=== PATIENT | male | born 1985 | race Caucasian/White ===

== ENCOUNTER 2018-04-06 01:57 | Emergency (ER) | payer OTHER ==
[2018-04-06 02:59] VITALS: BMI 21.1
--- NOTE | 2018-04-06 03:00 | PDOC ---
Attending Attestation - Resident Resident Name: Maricruz Nguyen - ED Attending Attestation I have performed the following: I have examined & evaluated the patient, The case was reviewed & discussed with the resident, I agree w/resident's findings & plan
[2018-04-06] MEDS ORDERED: FAMOTIDINE 20 MG/50 ML IVPB 20 MG/50 ML MG IVPB ONE ×2 (03:25→03:38)
[2018-04-06] MEDS ORDERED: MAG HYDROX/AL HYDROX/SIMETH 30 ML UNIT-DOSE CUP PO ONE (03:25)
[2018-04-06] MEDS ORDERED: SODIUM CHLORIDE 500 ML IV STA (03:25)
[2018-04-06] MEDS ORDERED: ONDANSETRON *ODT* 4 MG TABLET SL ONE (03:27)
--- NOTE | 2018-04-06 03:29 | PDOC ---
History of Present Illness - General Chief Complaint: Chronic pain Stated Complaint: ABDOMINAL PAIN Time Seen by Provider: 04/06/18 02:58 History Source: Patient Exam Limitations: Clinical Condition - History of Present Illness Initial Comments: 04/06/18 05:04 Patient with h/o gastritis and GERD on nexium present with complains of severe epigastric pains radiating to the mid-back for a week now with nausea. Patient report he has been having this abdominal pains intermittently for over a year now and seen multiple GI dosctors with no findings. Patient report he has visited multiple EDs for symptoms and imaging done comes back negative and treated for the pain and discharge. Patient report pepcid and mylanta does not help with pain and needed a good pain medication due to severe epigastric pains. Patient report constipation for same period. Patient report he has apt with GI in 2 days. Patient has been seen in this ED multiple times in over 2 year for same complains with no findings Timing/Duration: 1 week Past History - Past Medical History Allergies/Adverse Reactions: Allergies Allergy/AdvReac Type Severity Reaction Status Date / Time No Known Allergies Allergy Verified 04/06/18 02:59 Home Medications: Ambulatory Orders Esomeprazole Magnesium [Nexium 24Hr] 40 mg PO DAILY 04/06/18 Ondansetron HCl [Zofran] 8 mg PO DAILY PRN 04/06/18 Pantoprazole Sodium [Protonix] 40 mg PO DAILY #20 tablet. 04/06/18 COPD: No GI Disorders: Yes (ULCERS) - Surgical History Abdominal Surgery: No - Immunization History Immunization Up to Date: No - Suicide/Smoking/Psychosocial Hx Smoking Status: No Smoking History: Never smoked Have you smoked in the past 12 months: No Number of Cigarettes Smoked Daily: 0 Information on smoking cessation initiated: No Hx Alcohol Use: Yes Drug/Substance Use Hx: No Substance Use Type: None Hx Substance Use Treatment: No Review of Systems - Review of Systems Able to Perform ROS?: Yes Is the patient limited Tunisian proficient: No Constitutional: No: Chills, Fever HEENTM: No: Symptoms Reported, See HPI, Eye Pain, Blurred Vision, Tearing, Recent change in vision, Double Vision, Cataracts, Ear Pain, Ocular Prothesis, Ear Discharge, Nose Pain, Nose Congestion, Tinnitus, Nose Bleeding, Hearing Loss , Throat Pain, Throat Swelling, Mouth Pain, Dental Problems, Difficulty Swallowing, Mouth Swelling, Other Respiratory: No: Symptoms reported, See HPI, Cough, Orthopnea, Shortness of Breath, SOB with Exertion, SOB at Rest, Stridor, Wheezing, Productive cough, Hemoptysis, Other Cardiac (ROS): No: Symptoms Reported, See HPI, Chest Pain, Edema, Irregular Heart Rate, Lightheadedness, Palpitations, Syncope, Chest Tightness, Other ABD/GI: Yes: See HPI, Constipated, Nausea, Vomiting, Abdominal cramping ( epigastric). No: Diarrhea : No: Symptoms Reported, Frequency, Hematuria, Pain, Urgency, Testicular Mass , Testicular Swelling, Testicular Pain Musculoskeletal: No: Muscle Pain All Other Systems: Reviewed and Negative *Physical Exam - Vital Signs Last Vital Signs Temp Pulse Resp BP Pulse Ox 98.1 F 119 H 20 162/100 97 04/06/18 01:57 04/06/18 01:57 04/06/18 01:57 04/06/18 01:57 04/06/18 01:57 - Physical Exam General Appearance: Yes: Nourished, Appropriately Dressed, Mild Distress HEENT: positive: Normal ENT Inspection Neck: positive: Supple Respiratory/Chest: positive: Lungs Clear. negative: Respiratory Distress, Accessory Muscle Use Cardiovascular: positive: Regular Rhythm, Regular Rate Gastrointestinal/Abdominal: positive: Normal Bowel Sounds, Tender, Flat, Soft. negative: Organomegaly, Pulsatile Mass, Guarding, Rebound Musculoskeletal: positive: Normal Inspection. negative: CVA Tenderness Extremity: positive: Normal Capillary Refill, Normal Inspection, Normal Range of Motion Integumentary: positive: Normal Color, Dry, Warm Neurologic: positive: Fully Oriented, Alert. negative: Normal Mood/Affect Moderate Sedation - Procedure Monitoring Vital Signs: Procedure Monitoring Vital Signs Temperature 98.1 F 04/06/18 01:57 Pulse Rate 119 H 04/06/18 01:57 Respiratory Rate 20 04/06/18 01:57 Blood Pressure 162/100 04/06/18 01:57 O2 Sat by Pulse Oximetry (%) 97 04/06/18 01:57 ED Treatment Course - LABORATORY CBC & Chemistry Diagram: 04/06/18 03:30 04/06/18 03:30 Medical Decision Making - Medical Decision Making 04/06/18 05:10 Patient with h/o gastritis and GERD on nexium present with complains of severe epigastric pains radiating to the mid-back for a week now with nausea. Patient report he has been having this abdominal pains intermittently for over a year now and seen multiple GI dosctors with no findings. Patient report he has visited multiple EDs for symptoms and imaging done comes back negative and treated for the pain and discharge. Patient report pepcid and mylanta does not help with pain and needed a good pain medication due to severe epigastric pains no abdominal tenderness illicited on exam despite patient complaining of severe abdominal pains. CBC, CMP labs with no acute abnormality. Patient given morphine 2 mg IV and still requesting more pains meds . Patient laying in bed on his phone with any apperent discomfort but report severe pain when visited at bedside. CT with contrast of ABD/Pelvis ordered. dispo based on imaging results 04/06/18 06:37 cbc shows no elevated wbc. chemistry and cardiac profile normal. EKG shows NSR. abd/pelvic CT unremarkable. Patient requesting more pain meds and offered tylenol but declined and wants to be discharged. Patient stable for discharge to f/u with his GI apt tomorrow. *DC/Admit/Observation/Transfer Diagnosis at time of Disposition: GERD (gastroesophageal reflux disease) Qualifiers: Esophagitis presence: without esophagitis Qualified Code(s): K21.9 - Gastro- esophageal reflux disease without esophagitis Gastritis Qualifiers: Gastritis type: unspecified gastritis Chronicity: chronic Gastritis bleeding: without bleeding Qualified Code(s): K29.50 - Unspecified chronic gastritis without bleeding - Discharge Dispostion Disposition: HOME Condition at time of disposition: Stable Decision to Admit order: No - Prescriptions Prescriptions: Pantoprazole Sodium [Protonix] 40 mg PO DAILY #20 tablet.dr - Referrals Referrals: Win Mcmillan MD [Staff Physician] - - Patient Instructions Printed Discharge Instructions: Gastritis, [place] Diet Additional Instructions: Your labs and CAT scant was negative. Take prescribed medication daily. Follow- up with your GI as scheduled in tomorrow - Post Discharge Activity
[2018-04-06] MEDS ORDERED: morphine CARPU-JECT 2 MG/1 ML DISP.SYRIN IVPUSH ONE (03:33)
[2018-04-06] MEDS ORDERED: MORPHINE SULFATE 2 MG/ML VIAL ONE (03:37)
[2018-04-06] MEDS ORDERED: MAG HYDROX/AL HYDROX/SIMETH 30 ML UNIT-DOSE CUP ONE (03:37)
[2018-04-06] MEDS ORDERED: ONDANSETRON 4 MG/2 ML VIAL ONE (03:38)
[2018-04-06 03:48] LABS: BASO % 0.5 % (0-2.0); EOS % 0.5 % (0-4.5); HEMATOCRIT 46.1 % (35.4-49); LYMPH % 19.5 % (8-40); MEAN CELL VOLUME 86.6 fl (80-96); MEAN PLT VOLUME 6.9 fl (7.5-11.1); MONO % 15.2 % (3.8-10.2); NEUT % 64.3 % (42.8-82.8); PLATELET COUNT 288 K/MM3 (134-434); RBC 5.32 M/mm3 (4.00-5.60); WHITE BLOOD COUNT 6.8 K/mm3 (4.0-10.0)
[2018-04-06] MEDS ORDERED: ONDANSETRON 4 MG/2 ML VIAL IVPUSH ONE (03:52)
[2018-04-06 04:17] LABS: ALK PHOS 52 U/L (45-117); ANION GAP 10 MMOL/L (8-16); BILIRUBIN,TOTAL 3.1 mg/dL (0.2-1); BLOOD UREA NITROGEN 12 mg/dL (7-18); CALCIUM 9.9 mg/dL (8.5-10.1); CHLORIDE 94 mmol/L (98-107); CO2 30 mmol/L (21-32); CREATININE 0.9 mg/dL (0.55-1.3); GLUCOSE,RANDOM 101 mg/dL (74-106); LIPASE 169 U/L (73-393); POTASSIUM 3.5 mmol/L (3.5-5.1); SGOT/AST 21 U/L (15-37); SGPT/ALT 26 U/L (13-61); SODIUM 134 mmol/L (136-145); TOT PROT 8.3 g/dl (6.4-8.2)
[2018-04-06 06:20] VITALS: BP 149/98; PULSE 100; TEMP 98.2
--- NOTE | 2018-04-06 06:27 | PDOC ---
*Physical Exam - Vital Signs Last Vital Signs Temp Pulse Resp BP Pulse Ox 98.2 F 100 H 19 149/98 98 04/06/18 06:18 04/06/18 06:18 04/06/18 06:18 04/06/18 06:18 04/06/18 06:18 ED Treatment Course - LABORATORY CBC & Chemistry Diagram: 04/06/18 03:30 04/06/18 03:30 - ADDITIONAL ORDERS Additional order review: Laboratory Results 04/06/18 03:30 Sodium 134 L Potassium 3.5 Chloride 94 L Carbon Dioxide 30 Anion Gap 10 BUN 12 Creatinine 0.9 Creat Clearance w eGFR > 60 Random Glucose 101 Calcium 9.9 Total Bilirubin 3.1 H AST 21 ALT 26 Alkaline Phosphatase 52 Creatine Kinase 367 H Creatine Kinase Index 0.2 CK-MB (CK-2) < 1.0 Troponin I < 0.02 Total Protein 8.3 H Albumin 5.0 Lipase 169 04/06/18 03:30 RBC 5.32 MCV 86.6 MCHC 37.0 H RDW 13.0 MPV 6.9 L Neutrophils % 64.3 Lymphocytes % 19.5 D Monocytes % 15.2 H Eosinophils % 0.5 D Basophils % 0.5 - RADIOLOGY Radiology Studies Ordered: Category Date Time Status ABDOMEN & PELVIS CT WITH CONTR [CT] Stat CT Scan 04/06/18 04:59 Taken - Medications Given in the ED: ED Medications Discontinued Medications Generic Name Dose Route Start Last Admin Trade Name Freq PRN Reason Stop Dose Admin Al Hydroxide/Mg Hydroxide 30 ml 04/06/18 03:25 04/06/18 04:04 Mylanta Oral Suspension - PO 04/06/18 03:26 30 ml ONCE ONE Administration Famotidine/Sodium Chloride 20 mg in 50 mls @ 100 mls/hr 04/06/18 03:25 03:51 Pepcid 20 Mg Premixed Ivpb - IVPB 04/06/18 03:54 100 mls/hr ONCE ONE Administration Sodium Chloride 500 mls @ 500 mls/hr 04/06/18 03:25 04/06/18 03:50 Normal Saline - IV 04/06/18 04:24 500 mls/hr ASDIR STA Administration Morphine Sulfate 2 mg 04/06/18 03:33 04/06/18 03:51 Morphine Injection - IVPUSH 04/06/18 03:34 2 mg ONCE ONE Administration Ondansetron HCl 4 mg 04/06/18 03:27 04/06/18 04:04 Zofran Odt - SL 04/06/18 03:28 Not Given ONCE ONE Ondansetron HCl 4 mg 04/06/18 03:52 04/06/18 04:04 Zofran Injection IVPUSH 04/06/18 03:53 4 mg ONCE ONE Administration Medical Decision Making - Medical Decision Making 04/06/18 06:20 I have discussed and reviewed the case with the [facility] and agree with the assessment and plan. *DC/Admit/Observation/Transfer - Discharge Dispostion Condition at time of disposition: Fair - Referrals - Patient Instructions - Post Discharge Activity
--- NOTE | 2018-04-06 14:14 | EKG ---
Test Reason : Blood Pressure : / mmHG Vent. Rate : 079 BPM Atrial Rate : 079 BPM P-R Int : 164 ms QRS Dur : 088 ms QT Int : 386 ms P-R-T Axes : 086 079 059 degrees QTc Int : 442 ms NORMAL SINUS RHYTHM NORMAL ECG WHEN COMPARED WITH ECG OF 06-OCT-2017 13:42, NO SIGNIFICANT CHANGE WAS FOUND Confirmed by CHRIS AYERS MD ([id number]) on 04/06/2018 2:13:49 PM Referred By: Confirmed By:CHRIS AYERS MD
== END 2018-04-06 06:40 | disposition home or self-care (01) ==
LOC: JER 01:57
PROC: 3E033GC Introduction of Other Therapeutic Substance into Peripheral Vein, Percutaneous Approach (ICD-10-PCS; principal; 2018-04-06)
PROC: 3E033NZ Introduction of Analgesics, Hypnotics, Sedatives into Peripheral Vein, Percutaneous Approach (ICD-10-PCS; 2018-04-06)
PROC: 3E0337Z Introduction of Electrolytic and Water Balance Substance into Peripheral Vein, Percutaneous Approach (ICD-10-PCS; 2018-04-06)
DX: K29.50 Unspecified chronic gastritis without bleeding (principal); K21.9 Gastro-esophageal reflux disease without esophagitis
CPT/HCPCS: 36415; 74177-TC; 80053; 82550; 82553; 83690; 84484; 85025; 93005; 93010; 99285-25

== ENCOUNTER 2019-04-01 01:59 | Emergency (ER) | payer OTHER ==
[2019-04-01] MEDS ORDERED: SODIUM CHLORIDE 1,000 ML IV STA (02:28)
[2019-04-01] MEDS ORDERED: MAG HYDROX/AL HYDROX/SIMETH 30 ML UNIT-DOSE CUP PO ONE (02:28)
[2019-04-01] MEDS ORDERED: FAMOTIDINE 20 MG/50 ML IVPB 20 MG/50 ML MG IVPB ONE ×2 (02:28→03:11)
--- NOTE | 2019-04-01 02:31 | PDOC ---
History of Present Illness - General Chief Complaint: Pain, Acute Stated Complaint: ABDOMINAL PAIN Time Seen by Provider: 04/01/19 02:24 - History of Present Illness Initial Comments: 04/01/19 02:26 33 yo M with h/o GERD, PUD, multiple ED encounters for abdominal pain who p/w periumbilical abdominal pain. Patient reports 3 days of unremitting, pressure, periumbilical, abdominal pain, unremitting, and present at rest. Not relieved with Nexium. Patient states that pain consistent with past episodes of abdominal pain triggered by "stress." Denies postprandial pain. Patient states that symptoms ongoing since 2009 following TBI in . Reports one episode of NBNB emesis 03-31-18. Nml BM. Patient states that he has had multiple/broad GI workups in past, with negative CT, CTA imaging, and negative colonoscopies, endoscopies. HAs been on multiple medications in past. Patient denies TELLO, vision change, palpitations, cough, wheezing, orthopena, PND , leg swelling/pain, F,C, CP, SOB, urinary complaints, hematuria, BPR, diarrhea , constipation, lightheadedness, weakness, sensory changes. PMHx: as noted above ROS: as noted SHx: Denies Etoh, IVDA, tobacco use Allergies: Reglan, Haldol Past History - Past Medical History Allergies/Adverse Reactions: Allergies Allergy/AdvReac Type Severity Reaction Status Date / Time haloperidol [From Haldol] Allergy Verified 04/01/19 02:21 metoclopramide [From Reglan] Allergy Verified 04/01/19 02:20 Home Medications: Ambulatory Orders Esomeprazole Magnesium [Nexium 24Hr] 40 mg PO DAILY 04/06/18 Ondansetron HCl [Zofran] 8 mg PO DAILY PRN 04/06/18 COPD: No GI Disorders: Yes (ULCERS) - Surgical History Abdominal Surgery: No - Immunization History Immunization Up to Date: No - Psycho Social/Smoking Cessation Hx Smoking Status: No Smoking History: Never smoked Have you smoked in the past 12 months: No Number of Cigarettes Smoked Daily: 0 Information on smoking cessation initiated: No Hx Alcohol Use: No Drug/Substance Use Hx: No Substance Use Type: None Hx Substance Use Treatment: No Review of Systems - Review of Systems Comments:: 04/01/19 02:27 GENERAL/CONSTITUTIONAL: No fever or chills. No weakness. HEAD, EYES, EARS, NOSE AND THROAT: No change in vision. No ear pain or discharge. No sore throat. CARDIOVASCULAR: No chest pain or shortness of breath RESPIRATORY: No cough, wheezing, or hemoptysis. GASTROINTESTINAL: No nausea, vomiting, diarrhea or constipation. GENITOURINARY: No dysuria, frequency, or change in urination. MUSCULOSKELETAL: No joint or muscle swelling or pain. No neck or back pain. SKIN: No rash NEUROLOGIC: No headache, vertigo, loss of consciousness, or change in strength/ sensation. ENDOCRINE: No increased thirst. No abnormal weight change HEMATOLOGIC/LYMPHATIC: No anemia, easy bleeding, or history of blood clots. ALLERGIC/IMMUNOLOGIC: No hives or skin allergy. *Physical Exam - Vital Signs Last Vital Signs Temp Pulse Resp BP Pulse Ox 98.9 F 109 H 20 173/135 H 99 04/01/19 02:21 04/01/19 02:21 04/01/19 02:21 04/01/19 02:21 04/01/19 02:21 - Physical Exam 04/01/19 02:27 GENERAL: Awake, alert, and fully oriented, in no acute distress HEAD: No signs of trauma, normocephalic, atraumatic EYES: PERRLA, EOMI, sclera anicteric, conjunctiva clear ENT: Auricles normal inspection, hearing grossly normal, nares patent, oropharynx clear without exudates. Moist mucosa NECK: Normal ROM, supple, no lymphadenopathy, JVD, or masses LUNGS: No distress, speaks full sentences, clear to auscultation bilaterally HEART: Regular rate and rhythm, normal S1 and S2, no murmurs, rubs or gallops, peripheral pulses normal and equal bilaterally. ABDOMEN: Soft, nontender, normoactive bowel sounds. No guarding, no rebound. No masses EXTREMITIES : Normal inspection, Normal range of motion, no edema. No clubbing or cyanosis NEUROLOGICAL: Cranial nerves II through XII grossly intact. Normal speech, normal gait, no focal sensorimotor deficits SKIN: Warm, Dry, normal turgor, no rashes or lesions noted ED Treatment Course - LABORATORY CBC & Chemistry Diagram: 04/01/19 03:35 04/01/19 03:35 Medical Decision Making - Medical Decision Making 04/01/19 02:29 33 yo M with h/o GERD, PUD, multiple ED encounters for abdominal pain who p/w periumbilical abdominal pain x 3 days, and 1 episode NBNB emesis. HR 109, BP 173/105, vitals otherwise wnl, AF, A&Ox3. Physical exam notable unremarkable. Denies F,C, CP, SOB, urinary complaints, hematuria, BPR, diarrhea, constipation , lightheadedness, weakness, sensory changes. Will consider colitis, enteritis, biliary dz., pancreatitis. Symptoms triggered by "stress," per patient. Possible psychogenic. Will treat with analgesic, anti-emetic control, and reassess. ED Course: Maloox, Famotidine, NS 04/01/19 04:33 Laboratory Tests 04/01/19 04/01/19 03:35 03:35 WBC 7.1 Hgb 13.3 Hct 37.7 D Plt Count 256 Sodium 142 Potassium 3.7 BUN 12.4 Creatinine 0.9 Lipase 197 04/01/19 04:50 Patient refuses abdominal imaging, and UA, UDS Patient continues to endorse abdominal pain and requests morphine and dilaudid Prior I-STOP reveals multiple prescriptions of percocet with last script 2019 120 quantity Patient discharged with return precautions. Advised to f/u GI Discharge - Discharge Information Problems reviewed: Yes Clinical Impression/Diagnosis: Abdominal pain Qualifiers: Abdominal location: periumbilical Qualified Code(s): R10.33 - Periumbilical pain Condition: Stable Disposition: HOME - Admission No - Follow up/Referral Referrals: Cinda Ann MD [Staff Physician] - - Patient Discharge Instructions Patient Printed Discharge Instructions: DI for Abdominal Pain-Adult Additional Instructions: Please return to the emergency department with any new or worsening symptoms or concerns. 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 Please continue to take Zofran, and Nexium as prescribed. - Post Discharge Activity
[2019-04-01 02:37] VITALS: TEMP 98.9; BMI 18.4
[2019-04-01] MEDS ORDERED: ONDANSETRON 4 MG/2 ML VIAL IVPB ONE (03:03)
[2019-04-01] MEDS ORDERED: MAG HYDROX/AL HYDROX/SIMETH 30 ML UNIT-DOSE CUP ONE (03:10)
[2019-04-01] MEDS ORDERED: ALPRAZolam 0.25 MG TABLET PO ONE (03:23)
[2019-04-01] MEDS ORDERED: ALPRAZolam 1 MG TABLET ONE (03:25)
[2019-04-01] MEDS ORDERED: ONDANSETRON 4 MG/2 ML VIAL ONE (03:26)
[2019-04-01 03:56] LABS: BASO % 0.6 % (0-2.0); EOS % 2.4 % (0-4.5); HEMATOCRIT 37.7 % (35.4-49); HEMOGLOBIN 13.3 GM/dL (11.7-16.9); LYMPH % 23.3 % (8-40); MCH 30.9 pg (25.7-33.7); MCHC 35.1 g/dl (32.0-35.9); MEAN CELL VOLUME 88.1 fl (80-96); MEAN PLT VOLUME 7.1 fl (7.5-11.1); MONO % 10.7 % (3.8-10.2); PLATELET COUNT 256 K/MM3 (134-434); RBC 4.28 M/mm3 (4.00-5.60); RDW 13.1 % (11.9-15.9); WHITE BLOOD COUNT 7.1 K/mm3 (4.0-10.0)
--- NOTE | 2019-04-01 04:14 | PDOC ---
Attending Attestation - Resident Resident Name: Kevin Santoro - ED Attending Attestation I have performed the following: I have examined & evaluated the patient, The case was reviewed & discussed with the resident, I agree w/resident's findings & plan - HPI HPI: 04/01/19 06:46 Pt comes with chronic pain and he is requesting narcotics. - Physicial Exam PE: 04/01/19 06:47 Pt is afebrile normal exam agree with resident exam - Medical Decision Making 04/01/19 04:51 You have not added a ALFRED number. Keeping your ALFRED number(s) up to date on the My ALFRED Numbers page will enable the separation of your prescriptions from others ' in the search results. Others' Prescriptions Patient Name: Beto Capone Date: 1985 Address: [address] [place] [address] Sex: Male Rx Written Rx Dispensed Drug Quantity Days Supply Prescriber Name 03/09/2019 03/09/2019 oxycodone hcl 10 mg tablet 120 30 Richard Garcia MD 03/08/2019 03/08/2019 oxycodone hcl 5 mg tablet 15 8 Ced Bagley MD 02/16/2019 02/16/2019 oxycodone hcl 10 mg tablet 120 30 KevynCed anderson MD 01/23/2019 01/23/2019 oxycodone hcl 10 mg tablet 120 30 KevynCed anderson MD 12/25/2018 12/26/2018 oxycodone hcl 10 mg tablet 120 30 KevynCed anderson MD 12/20/2018 12/20/2018 hydromorphone 2 mg tablet 10 3 Lorena Mckinnon 12/01/2018 12/01/2018 oxycodone hcl 10 mg tablet 60 30 KevynCed anderson MD 11/24/2018 11/24/2018 oxycodone hcl 10 mg tablet 12 3 Ced Bagley MD 11/14/2018 11/18/2018 oxycodone-acetaminophen 10-325 mg tab 60 30 Ced Bagley MD 10/27/2018 11/02/2018 oxycodone-acetaminophen 10-325 mg tab 60 15 KevynCed anderson MD 10/16/2018 10/16/2018 oxycodone hcl 5 mg tablet 120 30 Ced Bagley MD 09/14/2018 09/14/2018 oxycodone hcl 10 mg tablet 120 30 KevynCed anderson MD 09/01/2018 09/01/2018 oxycodone-acetaminophen 10-325 mg tab 28 30 KevynCed anderson MD 08/21/2018 08/21/2018 oxycodone-acetaminophen 10-325 mg tab 21 7 Ced Bagley MD 08/03/2018 08/03/2018 oxycodone-acetaminophen 10-325 mg tab 21 14 Ced Bagley MD 07/30/2018 07/30/2018 oxycodone hcl 5 mg tablet 16 2 Adapa Heriberto 07/24/2018 07/24/2018 oxycodone-acetaminophen 10-325 mg tab 21 30 Ced Bagley MD 06/21/2018 06/21/2018 oxycodone-acetaminophen 10-325 mg tab 20 7 Ced Bagley MD 05/22/2018 05/22/2018 oxycodone-acetaminophen 10-325 mg tab 18 30 KevynCed anderson MD 05/02/2018 05/02/2018 oxycodone-acetaminophen 10-325 mg tab [facility] 04/26/2018 04/26/2018 chlordiazepoxide 10 mg capsule 60 30 [facility] 04/24/2018 04/24/2018 chlordiazepoxide 10 mg capsule 2 2 [facility] 04/21/2018 04/21/2018 chlordiazepoxide 10 mg capsule 6 3 [facility] 04/03/2018 04/03/2018 lorazepam 0.5 mg tablet 4 2 Brittani Everett DO * - Drugs marked with an asterisk are compound drugs. If the compound drug is made up of more than one controlled substance, then each controlled substance will be a separate row in the table. 04/01/19 06:48 Pt was confronted with his overuse of narcotics and he was asked to follow with PMD
[2019-04-01 04:22] LABS: ALBUMIN 3.8 g/dl (3.4-5.0); BILIRUBIN,TOTAL 2.1 mg/dL (0.2-1); BLOOD UREA NITROGEN 12.4 mg/dL (7-18); CALCIUM 8.7 mg/dL (8.5-10.1); CREATININE 0.9 mg/dL (0.55-1.3); POTASSIUM 3.7 mmol/L (3.5-5.1); TOT PROT 6.4 g/dl (6.4-8.2)
[2019-04-01] MEDS ORDERED: KETOROLAC TROMETHAMINE 30 MG/1 ML VIAL ONE (04:39)
[2019-04-01] MEDS: KETOROLAC TROMETHAMINE 30 MG/1 ML VIAL IVPUSH ONE ×2 (04:41→04:52)
[2019-04-01 05:11] VITALS: BP 154/95; PULSE 96
--- NOTE | 2019-04-01 12:23 | EKG ---
Test Reason : Blood Pressure : / mmHG Vent. Rate : 100 BPM Atrial Rate : 100 BPM P-R Int : 158 ms QRS Dur : 078 ms QT Int : 346 ms P-R-T Axes : 074 065 058 degrees QTc Int : 446 ms NORMAL SINUS RHYTHM NORMAL ECG WHEN COMPARED WITH ECG OF 06-APR-2018 04:12, NO SIGNIFICANT CHANGE WAS FOUND Confirmed by STEPHEN BAUTISTA MD ([id number]) on 04/01/2019 12:22:28 PM Referred By: Confirmed By:STEPHEN BAUTISTA MD
== END 2019-04-01 05:02 | disposition home or self-care (01) ==
LOC: JER 01:59
PROC: 3E033GC Introduction of Other Therapeutic Substance into Peripheral Vein, Percutaneous Approach (ICD-10-PCS; principal; 2019-04-01)
PROC: 3E033GC Introduction of Other Therapeutic Substance into Peripheral Vein, Percutaneous Approach (ICD-10-PCS; 2019-04-01)
DX: R10.33 Periumbilical pain (principal); Z87.19 Personal history of other diseases of the digestive system
CPT/HCPCS: 36415; 80053; 82550; 83690; 84484; 85025; 93005; 93010; 99283-25; J7030